=== PATIENT | female | born 1990 | race American Indian/Alaskan Native ===

== ENCOUNTER 2017-02-25 16:40 | Emergency (ER) | payer MEDICAID ==
[2017-02-25 21:39] LABS: Bacteria,Urine 1+ /HPF (Negative); Bilirubin,Urine NEG (Negative); Blood,Urine NEG (Negative); Ketones,Urine NEG (Negative); Leukocyte Esterase,Urine LG (Negative); Mucus,Urine FEW /HPF; Nitrite,Urine NEG (Negative); Protein,Urine <15 mg/dL mg/dL (Negative); Urobilinogen,Urine < 2.0 mg/dL (<2.0)
[2017-02-25 23:48] VITALS: BP 121/70
--- NOTE | 2017-02-26 00:08 | Emergency Department Report ---
HPI - General Chief Complaint: Urogenital-Female Time Seen by Provider: 02/25/17 23:52 - HPI HPI: She is a 26-year-old female presents to ED complaining of lower made pelvic intermittent cramping and right sided flank pain that started yesterday morning. Patient states she was seen at [facility] 3 days ago she found out she was . Patient states was confirmed with an ultrasound at [facility] and she was sent home on antibiotics for UTI. Patient states she has not been able to eat due to nausea and denies abusive to the medication. Patient denies fevers/chills/abdominal pain/diarrhea/constipation/chest pain/ headache/blurred vision or any other problems ED Past Medical Hx - Past Medical History Hx Hypertension: No Hx Congestive Heart Failure: No Hx Diabetes: No Hx Deep Vein Thrombosis: No Hx Renal Disease: No Hx Sickle Cell Disease: Yes (trait) Hx Seizures: No Hx Asthma: No Hx COPD: No Hx HIV: No - Surgical History Past Surgical History?: No - Social History Smoking Status: Current Some Day Smoker - Medications Home Medications: Home Medications Medication Instructions Recorded Confirmed Last Taken Type Acetaminophen [Acetaminophen 8 650 mg PO Q8H #30 tablet.er 02/26/17 Unknown Rx Hour] Amoxicillin/K Clav Tab [Augmentin 1 tab PO Q12HR #10 tab 02/26/17 Unknown Rx 875 mg] Doxylamine/Pyridoxine HCl 2 each PO QHS #30 tablet. 02/26/17 Unknown Rx [Ambrose Castro 10-10 mg Tablet] ED Review of Systems ROS: Stated complaint: 8 WKS W/BACK AND STOMACH PAIN Other details as noted in HPI Constitutional: denies: chills, fever Eyes: denies: eye pain, eye discharge, vision change ENT: denies: ear pain, throat pain Respiratory: denies: cough, shortness of breath, wheezing Cardiovascular: denies: chest pain, palpitations Endocrine: no symptoms reported Gastrointestinal: nausea, vomiting. denies: abdominal pain, diarrhea Genitourinary: denies: urgency, dysuria, frequency, hematuria, discharge Musculoskeletal: denies: back pain, joint swelling, arthralgia Skin: denies: rash, lesions Neurological: denies: headache, weakness, paresthesias Psychiatric: denies: anxiety, depression Hematological/Lymphatic: denies: easy bleeding, easy bruising Physical Exam - Physical Exam Vital Signs: Vital Signs 02/25/17 02/25/17 18:05 23:47 Temperature 98.3 F Pulse Rate 71 95 H Respiratory 18 18 Rate Blood Pressure 131/103 Blood Pressure 121/70 [Left] O2 Sat by Pulse 100 98 Oximetry Physical Exam: GENERAL: Alert and oriented x3, no apparent distress, Normal Gait, atraumatic. HEAD: Head is normocephalic and a-traumatic. EYES: Extra ocular muscles are intact. Pupils are equal, round, and reactive to light and accommodation. LUNGS: Symetrical with respiration, No wheezing, no rales or crackles, CTAB. HEART: S1, S2 present, regular rate and rhythm without murmur, no rubs, no gallops. Non tender to palpation ABDOMEN: No organomegaly was noted,Positive bowel sounds, soft, and non- distended. Nontender to palpation on all Quadrants, NO CVA tenderness. SKIN: Warm and dry, No lesions, No ulceration or induration present. ED Course Vital Signs 02/25/17 02/25/17 18:05 23:47 Temperature 98.3 F Pulse Rate 71 95 H Respiratory 18 18 Rate Blood Pressure 131/103 Blood Pressure 121/70 [Left] O2 Sat by Pulse 100 98 Oximetry ED Medical Decision Making - Medical Decision Making 26-year-old female at approximately 8 weeks gestation presented with urine tract infection / nausea ED course: Patient received Zofran and Tylenol in ED. Discussed patient home medication of nausea so she is able to eat and take the antibiotics as prescribed. Discussed patient with complete antibiotic dose.Discussed take antibiotics as prescribed Vital signs are normal patient is in no acute distress. No active vomiting in ED stay When I ask patient for care she denies any states she is not planning on keeping the baby. Discussed OBGYN for all and follow up regardless. With his allergic anesthesia understands instructions given. Critical care attestation.: If time is entered above; I have spent that time in minutes in the direct care of this critically ill patient, excluding procedure time. ED Disposition Clinical Impression: Nausea UTI (urinary tract infection) Qualifiers: Urinary tract infection type: acute cystitis Hematuria presence: without hematuria Qualified Code(s): N30.00 - Acute cystitis without hematuria Qualifiers: Weeks of gestation: 8 weeks Qualified Code(s): Z3A.08 - 8 weeks gestation of Disposition: DC-01 TO HOME OR SELFCARE Is pt being admited?: No Does the pt Need Aspirin: No Condition: Stable Instructions: Urinary Tract Infection in Women (ED), (ED), Morning Sickness (ED) Prescriptions: Doxylamine/Pyridoxine HCl [Diclegis Dr 10-10 mg Tablet] 2 each PO QHS #30 tablet. Acetaminophen [Acetaminophen 8 Hour] 650 mg PO Q8H #30 tablet.er Amoxicillin/K Clav Tab [Augmentin 875 mg] 1 tab PO Q12HR #10 tab Referrals: PRIMARY CARE, [Primary Care Provider] - 3-5 Days Forms: Accompanied Note, Work/School Release Form(ED) Time of Disposition: 00:39
[2017-02-26] MEDS ORDERED: ZOFRAN ODT PO ONE (00:22)
[2017-02-26] MEDS ORDERED: TYLENOL PO ONE (00:22)
== END 2017-02-26 02:07 | disposition home or self-care (01) ==
LOC: ED 16:40
DX: O23.31 Infections of other parts of urinary tract in pregnancy, first trimester (principal); O26.891 Other specified pregnancy related conditions, first trimester; R11.0 Nausea; F17.200 Nicotine dependence, unspecified, uncomplicated; Z3A.08 8 weeks gestation of pregnancy; D57.1 Sickle-cell disease without crisis
CPT/HCPCS: 36415; 81001; 81025; 84702; 99283; Q0162

== ENCOUNTER 2017-03-22 11:21 | Emergency (ER) | payer MEDICAID ==
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
[2017-03-22 16:49] VITALS: BP 109/69
[2017-03-22 16:52] LABS: Bacteria,Urine 1+ /HPF (Negative); Bilirubin,Urine NEG (Negative); Blood,Urine SM (Negative); Ketones,Urine NEG (Negative); Leukocyte Esterase,Urine LG (Negative); Mucus,Urine FEW /HPF; Nitrite,Urine NEG (Negative); Protein,Urine <15 mg/dL mg/dL (Negative)
== END 2017-03-22 17:32 | disposition home or self-care (01) ==
LOC: ED 11:21
DX: O23.41 Unspecified infection of urinary tract in pregnancy, first trimester (principal); Z87.891 Personal history of nicotine dependence; Z3A.01 Less than 8 weeks gestation of pregnancy
CPT/HCPCS: 36415; 81001; 84702; 84703; 99283